=== PATIENT | male | born 1960 | race Caucasian/White ===

== ENCOUNTER 2019-01-16 09:27 | Emergency (ER) | payer OTHER ==
[~2019-01-16] VITALS: Ht 182.9 cm; Wt 81.6 kg
--- NOTE | 2019-01-16 09:37 | NUR ---
at bedside to examine patient.
[2019-01-16] MEDS ORDERED: IV NORMAL SALINE 1000 ML BAG IV ONE (09:45)
[2019-01-16] MEDS ORDERED: ONDANSETRON 4 MG/2 ML VIAL IV ONE (09:45)
[2019-01-16] MEDS ORDERED: MECLIZINE HCL 25 MG TABLET PO ONE (09:45)
[2019-01-16] MEDS ORDERED: ONDANSETRON 4 MG/2 ML VIAL ONE (10:04)
[2019-01-16] MEDS ORDERED: MECLIZINE HCL 25 MG TABLET ONE (10:04)
--- NOTE | 2019-01-16 10:07 | NUR ---
Patient taken down for CT of the head.
[2019-01-16 10:08] LABS: CREATININE 1.1 mg/dL (0.6-1.3)
[2019-01-16 10:10] LABS: BASOPHILS # (AUTO) 0.1 K/uL (0.0-8.0); BASOPHILS % (AUTO) 0.8 % (0.0-2.0); EOSINOPHILS # (AUTO) 0.4 K/uL (0.0-0.7); EOSINOPHILS % (AUTO) 3.9 % (0.0-7.0); HEMATOCRIT 50.1 % (36.7-47.1); HEMOGLOBIN 17.2 g/dL (12.5-16.3); LYMPHOCYTES # (AUTO) 2.9 K/uL (20.0-40.0); LYMPHOCYTES % (AUTO) 31.7 % (20.5-51.5); MEAN CORPUSCULAR HEMOGLOBIN 30.9 uug (23.8-33.4); MEAN CORPUSCULAR HGB CONC 34 g/dL (32.5-36.3); MEAN CORPUSCULAR VOLUME 90.1 fL (73.0-96.2); MONOCYTES # (AUTO) 0.5 K/uL (2.0-10.0); MONOCYTES % (AUTO) 5.3 % (0.0-11.0); NEUTROPHILS # (AUTO) 5.3 K/uL (1.8-8.9); NEUTROPHILS % (AUTO) 58.3 % (38.5-71.5); PLATELET COUNT (AUTO) 204 K/uL (152-348); RED BLOOD CELL COUNT(AUTO) 5.56 MIL/uL (4.06-5.63)
--- NOTE | 2019-01-16 10:20 | NUR ---
Patient back from CT
--- NOTE | 2019-01-16 10:57 | NUR ---
[facility] instructions and prescription given to pt. who verbalized understanding.
--- NOTE | 2019-01-16 11:10 | NUR ---
Patient left room ambulatory steady gait. No c/of dizziness, or any other discomfort.
== END 2019-01-16 11:11 | disposition home or self-care (01) ==
LOC: ER 09:27
DX: R42 Dizziness and giddiness (principal); J32.9 Chronic sinusitis, unspecified; I10 Essential (primary) hypertension; E11.9 Type 2 diabetes mellitus without complications
CPT/HCPCS: 36415; 70450; 80048; 84484; 85025; 85730; 93005; 96361; 96374; 99284; J2405; 70030-TC; A4663; J7030; J8597

== ENCOUNTER 2019-02-07 23:01 | Emergency (ER) | payer OTHER ==
[~2019-02-07] VITALS: Ht 175.3 cm; Wt 76.2 kg
--- NOTE | 2019-02-07 23:18 | NUR ---
PT RECEIVED AMBULATORY FROM HOME WITH STABLE GAIT. C/O RECURRING DIZZINESS (WAS SEEN FOR THE SAME COMPLAINT 01/16/19) CURRENTLY C/O DIZZINESS X 9HRS, -NVD, NO LOC, Denies Fever/Chills. No recent travel. No pertinent medical history/NKDA. SAFETY Patient in bed, bed in lowest position. Siderails up x 2. Call light within reach. Will continue to monitor accordingly MD AT BEDSIDE FOR HX AND PHYSICAL
[2019-02-07] MEDS ORDERED: MECLIZINE HCL 25 MG TABLET ONE (23:28)
[2019-02-07] MEDS ORDERED: MECLIZINE HCL 25 MG TABLET PO ONE (23:30)
--- NOTE | 2019-02-08 00:14 | NUR ---
MD AT BEDSIDE FOR UPDATE PT NAD, Patient in bed, bed in lowest position. Siderails up x 2. Call light within reach. Will continue to monitor accordingly
[2019-02-08] MEDS ORDERED: ONDANSETRON 4 MG/2 ML VIAL IV ONE (00:30)
[2019-02-08] MEDS ORDERED: IV NORMAL SALINE 1000 ML BAG IV ONE (00:30)
[2019-02-08] MEDS ORDERED: ONDANSETRON 4 MG/2 ML VIAL ONE (00:35)
--- NOTE | 2019-02-08 01:01 | NUR ---
DC IVF Patient discharged to home in stable conditon. Written and verbal after care instructions given. Patient verbalizes understanding of instructions. AMBULATORY WITH STABLE GAIT. ALL BELONGINGS WITH PATIENT
[2019-02-08 01:07] VITALS: BP 107/93
== END 2019-02-08 01:08 | disposition home or self-care (01) ==
LOC: ER 23:01
DX: H83.09 Labyrinthitis, unspecified ear (principal)
CPT/HCPCS: 96361; 96374; 99283; J2405; A4663; J7030; J8597

== ENCOUNTER 2020-09-21 11:37 | Emergency (ER) | payer MEDICAID, OTHER ==
[~2020-09-21] VITALS: Ht 182.9 cm; Wt 77.1 kg
[2020-09-21] MEDS ORDERED: MECLIZINE HCL 25 MG TABLET PO ONE (12:00)
[2020-09-21] MEDS ORDERED: MECLIZINE HCL 25 MG TABLET ONE (12:02)
[2020-09-21 12:10] LABS: BASOPHILS # (AUTO) 0.1 K/uL (0.0-8.0); BASOPHILS % (AUTO) 0.8 % (0.0-2.0); EOSINOPHILS # (AUTO) 0.3 K/uL (0.0-0.7); EOSINOPHILS % (AUTO) 3.5 % (0.0-7.0); HEMATOCRIT 50.5 % (36.7-47.1); LYMPHOCYTES # (AUTO) 3.5 K/uL (20.0-40.0); LYMPHOCYTES % (AUTO) 38.9 % (20.5-51.5); MEAN CORPUSCULAR HGB CONC 34 g/dL (32.5-36.3); MEAN CORPUSCULAR VOLUME 92.1 fL (73.0-96.2); MONOCYTES # (AUTO) 0.5 K/uL (2.0-10.0); MONOCYTES % (AUTO) 5.2 % (0.0-11.0); NEUTROPHILS # (AUTO) 4.6 K/uL (1.8-8.9); NEUTROPHILS % (AUTO) 51.6 % (38.5-71.5); PLATELET COUNT (AUTO) 277 K/uL (152-348); RED BLOOD CELL COUNT(AUTO) 5.49 MIL/uL (4.06-5.63); WHITE BLOOD COUNT (AUTO) 8.9 K/uL (3.6-10.2)
[2020-09-21 12:13] LABS: CREATININE 1.1 mg/dL (0.6-1.3); POTASSIUM 4.6 mmol/L (3.5-5.1)
[2020-09-21 12:24] LABS: BILIRUBIN,DIRECT 0.1 mg/dL (0.0-0.2); BILIRUBIN,TOTAL 0.4 mg/dL (0.2-1.0); TOTAL PROTEIN, SERUM 7.5 g/dL (6.4-8.2)
[2020-09-21] MEDS ORDERED: DEXAMETHASONE SOD PHOSPHATE 4 MG INJ IV ONE (13:30)
[2020-09-21] MEDS ORDERED: IV NS 1000 ML 1,000 ML IV ONE (13:30)
[2020-09-21] MEDS ORDERED: DEXAMETHASONE SOD PHOSPHATE 10 MG INJ ONE (13:35)
[2020-09-21] MEDS ORDERED: MECL-159 PO (14:29)
--- NOTE | 2020-09-21 15:00 | NUR ---
Removed IV intact, site okay, bandaged. Gave Pt RX info and d/c instructions, pt verbalized understanding. Pt instructed not to drive.
== END 2020-09-21 15:20 | disposition home or self-care (01) ==
LOC: ER 11:37
DX: R42 Dizziness and giddiness (principal); R11.0 Nausea; F17.210 Nicotine dependence, cigarettes, uncomplicated
CPT/HCPCS: 36415; 70450; 80048; 80076; 84484; 85025; 85730; 93005; 96361; 96374; 99285; J1100; 70030-TC; A4663; J7030; J8597

== ENCOUNTER 2024-10-25 13:40 | Emergency (ER) | payer MEDICARE, OTHER ==
[~2024-10-25] VITALS: Ht 182.9 cm; Wt 77.1 kg
[~2024-10-25 13:40] MED LIST: ALBU8.5H8 INH; AZIT500T4 PO; CETI-90 PO; MECL-159 PO; PRED20TA PO
[2024-10-25] MEDS: IPRATROPIUM BROMIDE 0.5 MG/2.5 ML NEBU NEB ONE (14:11)
[2024-10-25] MEDS: ALBUTEROL SULFATE 2.5 MG/3 ML NEBU NEB ONE (14:11)
[2024-10-25 14:13] VITALS: O2SAT 97
[2024-10-25] MEDS ORDERED: ALBUTEROL SULFATE 2.5 MG/3 ML NEBU ONE (14:14)
[2024-10-25] MEDS ORDERED: IPRATROPIUM BROMIDE 0.5 MG/2.5 ML NEBU ONE (14:14)
[2024-10-25] MEDS: methylPREDNISolone SOD SUCC 125 MG/2 ML VIAL IV ONE (14:23)
[2024-10-25 14:44] LABS: CALCIUM 9.1 mg/dL (8.5-10.1); CREATININE 0.9 mg/dL (0.6-1.3); POTASSIUM 3.9 mmol/L (3.5-5.1)
[2024-10-25 14:47] LABS: HEMATOCRIT 48.4 % (36.7-47.1); MEAN CORPUSCULAR HEMOGLOBIN 29.8 uug (23.8-33.4); MEAN CORPUSCULAR HGB CONC 33 g/dL (32.5-36.3); MEAN CORPUSCULAR VOLUME 90.4 fL (73.0-96.2); PLATELET COUNT (AUTO) 220 K/uL (152-348); RED BLOOD CELL COUNT(AUTO) 5.35 MIL/uL (4.06-5.63); RED CELL DISTRIBUTION WIDTH 13.1 % (12.1-16.2); WHITE BLOOD COUNT (AUTO) 8.6 K/uL (3.6-10.2)
[2024-10-25 14:48] LABS: BASOPHILS # (AUTO) 0.1 K/UL (0.0-0.2); BASOPHILS % (AUTO) 0.9 % (0.0-2.0); EOSINOPHILS # (AUTO) 0.6 K/uL (0.0-0.7); LYMPHOCYTES # (AUTO) 2.7 K/uL (0.8-4.8); LYMPHOCYTES % (AUTO) 31.4 % (20.5-51.5); MONOCYTES # (AUTO) 0.8 K/uL (0.1-1.30); MONOCYTES % (AUTO) 9.8 % (0.0-11.0); NEUTROPHILS # (AUTO) 4.4 K/uL (1.8-8.9); NEUTROPHILS % (AUTO) 50.9 % (38.5-71.5)
[2024-10-25 15:13] VITALS: O2SAT 99
[2024-10-25] MEDS ORDERED: methylPREDNISolone SOD SUCC 125 MG/2 ML VIAL ONE (15:21)
[2024-10-25] MEDS ORDERED: PRED20TA PO (17:59)
[2024-10-25] MEDS ORDERED: ALBU18HF2 INH (17:59)
[2024-10-25 18:20] VITALS: BP 113/69; O2SAT 99
== END 2024-10-25 18:21 | disposition home or self-care (01) ==
LOC: ER 13:40
DX: J45.901 Unspecified asthma with (acute) exacerbation (principal); R07.9 Chest pain, unspecified; Z79.51 Long term (current) use of inhaled steroids; Z79.52 Long term (current) use of systemic steroids; Z86.69 Personal history of other diseases of the nervous system and sense organs
CPT/HCPCS: 99285; 96374; 71045; 80048; 83880; 83735; 85025; 36415; 94644; 93005; J2919; 94760; A4606; A4663; J3590

== ENCOUNTER 2025-02-09 14:18 | Emergency (ER) | payer MEDICARE, OTHER ==
[~2025-02-09] VITALS: Ht 182.9 cm; Wt 77.1 kg
[~2025-02-09 14:18] MED LIST changes: +ALBU18HF2 INH
[2025-02-09] MEDS ORDERED: ONDANSETRON 4 MG/2 ML VIAL ONE (14:50)
[2025-02-09] MEDS ORDERED: NITROGLYCERIN OINT 1 GM PACKET TP ONE (14:50)
[2025-02-09] MEDS ORDERED: METOPROLOL TARTRATE 5 MG/5 ML VIAL IVP ONE ×2 (14:50→15:30)
[2025-02-09] MEDS ORDERED: MAGNESIUM SULFATE 1 GM/2 ML VIAL ONE (14:50)
[2025-02-09] MEDS ORDERED: HYDROMORPHONE 1 MG/1 ML DISP.SYRIN ONE ×2 (14:51→15:31)
[2025-02-09 14:52] LABS: PLATELET COUNT (AUTO) 206 K/uL (152-348); RED BLOOD CELL COUNT(AUTO) 5.15 MIL/uL (4.06-5.63); RED CELL DISTRIBUTION WIDTH 13.7 % (12.1-16.2); WHITE BLOOD COUNT (AUTO) 10.7 K/uL (3.6-10.2)
[2025-02-09] MEDS: ONDANSETRON 4 MG/2 ML VIAL IV ONE (14:57)
[2025-02-09] MEDS: NITROGLYCERIN OINT 1 GM PACKET TP ONE (14:57)
[2025-02-09] MEDS: HYDROMORPHONE 1 MG/1 ML DISP.SYRIN IV ONE ×2 (14:57→15:36)
[2025-02-09] MEDS: MAGNESIUM SULFATE 2 GM in IV DEXTROSE 5% 100 ML IV ONE (14:58)
[2025-02-09] MEDS: METOPROLOL TARTRATE 5 MG/5 ML VIAL IVP ONE ×2 (14:58→15:36)
[2025-02-09 15:00] LABS: CREATININE 1.0 mg/dL (0.6-1.3); SODIUM SERUM 139 mmol/L (136-145); UREA NITROGEN, BLOOD 21 mg/dL (7-18)
[2025-02-09 15:06] LABS: ASPARTATE AMINOTRANSFERASE 15 U/L (15-37); TOTAL PROTEIN, SERUM 7.0 g/dL (6.4-8.2)
[2025-02-09] MEDS ORDERED: METOPROLOL TARTRATE 50 MG TABLET ONE (15:30)
[2025-02-09 15:36] VITALS: BP 130/85
[2025-02-09] MEDS: METOPROLOL TARTRATE 50 MG TABLET PO ONE (15:36)
[2025-02-09] MEDS ORDERED: HEPARIN/D5W DRIP 500 ML ONE (15:49)
[2025-02-09] MEDS ORDERED: HEPARIN SODIUM,PORCINE 5,000 UNITS/ML VIAL ONE (15:50)
[2025-02-09 16:00] VITALS: BP 118/79; O2SAT 99
[2025-02-09] MEDS: HEPARIN SODIUM,PORCINE/PF 500 UNIT/5 ML SYR XX ONE (16:03)
[2025-02-09] MEDS: HEPARIN/D5W DRIP 500 ML IV PRN (16:03)
== END 2025-02-09 16:32 | disposition short-term general hospital (02) ==
LOC: ER 14:18
DX: I21.9 Acute myocardial infarction, unspecified (principal); F17.210 Nicotine dependence, cigarettes, uncomplicated; J45.909 Unspecified asthma, uncomplicated; R06.02 Shortness of breath; Z79.52 Long term (current) use of systemic steroids; Z88.0 Allergy status to penicillin
CPT/HCPCS: 99291; 96365; 96375 ×2; 80076; 80048; 83880; 83735; 85025; 85379; 84484; 36415; 71045; 93005; 96376; J1644; J3475 ×2; J3490 ×2; J2405; J1171 ×2; A4606; A4663